=== PATIENT | female | born 1985 ===

== ENCOUNTER 2018-08-31 10:02 | Observation (INO) ==
[2018-08-31 11:11] LABS: Basophils % 0.4 %; Eosinophils # 0.2 K/mcL (0.0-0.6); Eosinophils % 1.8 %; Hematocrit 33.9 % (35.3-44.9); Immature Granulocytes % 0.8 % (0-4); Lymphocytes # 1.5 K/mcL (0.6-4.6); Mean Corpuscular HGB Conc 32.4 g/dL (31.6-35.5); Mean Corpuscular Hemoglobin 30.1 pg (28.0-33.3); Mean Corpuscular Volume 92.6 fL (83.0-100.0); Mean Platelet Volume 11.4 fL (9.4-12.4); Monocytes # 0.4 K/mcL (0.0-1.3); Monocytes % 4.9 %; Neutrophils # 6.7 K/mcL (1.6-8.9); Platelet Count 174 K/mcL (140-400); Red Blood Count 3.66 M/mcL (3.82-4.97); Red Cell Distribution Width 13.8 % (11.5-14.5); Segmented Neutrophils % 75.1 %; White Blood Count 8.9 K/mcL (4.3-11.1)
[2018-08-31 11:19] LABS: Amphetamine Screen,Urine Negative ng/mL (Cutoff=1000); Barbiturate Screen,Urine Negative ng/mL (Cutoff=200); Benzodiazepines Screen,Urine Negative ng/mL (Cutoff=200); Cannabinoid Screen,Urine Negative ng/mL (Cutoff = 50); Cocaine Screen,Urine Negative ng/mL (Cutoff= 300); Creatinine,Urine 111 mg/dL; Opiate Screen,Urine Negative ng/mL (Cutoff=300); Phencyclidine Screen,Urine Negative ng/mL (Cutoff=25); Protein/Creatinine Ratio,Urine 0.16 mg/mg (0.00-0.20)
[2018-08-31 11:31] LABS: Alanine Aminotransferase 11 Units/L (7-52); Aspartate Amino Transferase 14 Units/L (13-39); BUN/Creatinine Ratio 10 (6-26); Blood Urea Nitrogen 6 mg/dL (6-20); Lactate Dehydrogenase 117 Units/L (140-271); Uric Acid 5.2 mg/dL (2.3-7.6); eGFR For African Americans > 60 (> 60); eGFR For Non-African Americans > 60 (> 60)
--- NOTE | 2018-08-31 11:35 | OB/GYN Progress Note ---
Date of Encounter: 08/31/18 Time of Encounter: 11:32 - Assessment and Plan (1) 35 weeks gestation of Current Visit: Yes Status: Acute Reactive NST Labs normal Serial blood pressure normal Discharge home with PTL and Pre-E precautions Follow up in office as scheduled and PRN POC per consult with Dr León (2) NST (non-stress test) reactive Current Visit: Yes Status: Acute Subjective - Subjective Principal diagnosis: Pre-Eclampsia Rule Out Interval history: Ms Quintanilla presents to triage from the office for a Pre-Eclampsia evaluation. Her pressures were 150/100 x 2 and then 142/90's with repeat. She denies headaches, vision changes, epigastric pain, leaking of fluid, vaginal discharge, and contractions. She is seen by Dr León for her care. Antepartum ROS: movement normal, no loss of fluid, no vaginal bleeding, no contractions Objective - Vital Signs Vital Signs: Intake and Output 08/30/18 08/31/18 08/31/18 23:59 07:59 15:59 Other: Weight 83.4 kg Patient Weight 08/31/18 23:59 Weight 83.4 kg - Exam FHR: auscultation normal, category 1 FHR comments: Baseline 155 with moderate variability and 15 x 15 accels and no decels. No contractions per toco and patient report. Abdomen: Present: normal appearance, soft, gravid Uterus: Present: normal. Absent: firm, tenderness - Labs Labs: Abnormal lab results RBC 3.66 M/mcL (3.82-4.97) L 08/31/18 10:50 Hgb 11.0 g/dL (11.5-15.4) L 08/31/18 10:50 Hct 33.9 % (35.3-44.9) L 08/31/18 10:50 0.59 mg/dL (0.60-1.20) L 08/31/18 10:50 117 Units/L (140-271) L 08/31/18 10:50 18 mg/dL (1-14) H 08/31/18 10:50
== END 2018-08-31 12:20 | disposition home or self-care (01) ==
LOC: 1NENULAB
PROVIDERS: ADMIT Advanced Practice Midwife; ATTEND Advanced Practice Midwife

== ENCOUNTER 2018-09-26 08:09 | Inpatient (IN) ==
--- NOTE | 2018-09-26 09:03 | Anesthesia Evaluation PreOp ---
Date of Encounter: 09/26/18 Time of Encounter: 08:50 - Past History Planned Operation: Spinal for section Cardiac History: HTN (mild hypertension with ) Pulmonary History: Denies Any Significant HX SOLAR DESIGNER History: Denies Any Significant HX Other Medical History: GERD Anesthesia History: No Prior Anesthetic Complications, Past Anesthesia (previous csection) : Yes Alcohol Use: none Drug use: none Medications and Allergies Cetirizine HCl [Zyrtec] 1 tab PO DAILY 08/23/18 [History] Ferrous Sulfate [Iron] 1 tab PO BID 08/23/18 [History] Pnv95/Ferrous Fumarate/FA [ Vitamin Tablet] 1 tab PO DAILY 08/23/18 [History] raNITIdine HCl [Zantac] 1 tab PO DAILY 08/23/18 [History] Aspirin [Adult Aspirin] 81 mg PO 09/26/18 [History] Allergy/AdvReac Type Severity Reaction Status Date / Time No Known Allergies Allergy Verified 08/23/18 13:57 - Meds/Allergy Pre-op Review Medications Reviewed: Yes Allergies Reviewed: Yes Beta Blockers on Current Med List: No Anesthesia Results - Labs 09/26/18 09:28 Anesthesia Exam BP 136/90 P 82 R 16 T 98.1 Height: 5'0" Weight: 85.0kg NPO (# of Hours): 12 Pain Scale: 0 Pain Scale Used: Numeric (1 - 10) - HEENT Pupil (Motor): Pupils equal Mallampati: II Teeth: Normal Oral Opening: Greater than 3 - SOLAR DESIGNER LOC: Oriented SOLAR DESIGNER Motor: Normal RUE, Normal LUE, Normal RLE, Normal LLE, Normal Face SOLAR DESIGNER Sensory: Normal: RUE, LUE, RLE, LLE, Face - Cardiac Rhythm: Regular Murmur: None JVD: No Carotid Bruit: No - Pulmonary Breath Sounds: bilateral Clear Respiratory Effort: Symmetrical Anesthesia Assess/Plan ASA Score: 2 Level of consciousness: Cooperative, Oriented, Tranquil Anesthetic Plan: Spinal Autologous Blood: Yes Monitoring Plan: Standard Monitors Recovery Plan: PACU
--- NOTE | 2018-09-26 09:05 | OB/GYN History & Physical ---
Date of Encounter: 09/26/18 Time of Encounter: 09:03 Assessment and Plan (1) 39 weeks gestation of Current visit: Yes Status: Acute Admit to labor and delivery for scheduled repeat low transverse section, declined TOLAC. Continuous EFM and toco. (2) History of gestational hypertension Current visit: Yes Status: Acute Baby aspirin daily. Follow-up on preeclampsia labs ordered on admission. (3) History of section, low transverse Current visit: Yes Status: Acute Plan for repeat section today. Status post counseling, risks and benefits discussion, regarding trial of labor after section and patient declines TOLAC. (4) Sterilization Current visit: Yes Status: Acute Family planning status complete. Consent signed in clinic on 07/29/2018. History of Present Illness Chief complaint: Repeat low transverse section HPI: Ms. Quintanilla is a 33 year old female at 39.1 weeks gestational age by LMP. She presents to labor and delivery for planned repeat low transverse section with bilateral tubal ligation. She declined TOLAC. She is currently taking a baby aspirin aspirin daily for history of gestational hypertension in her previous . Her blood pressures have been controlled without medication this . She continues to verbalize her desire for tubal ligation as her family planning status is complete. On 08/30/2018 her FABIOLA was 24.61 and her most recent ultrasound from 09/23/2018 showed an FABIOLA of 17.5 in vertex position an anterior placenta. +FM. Denies VB, LOF, abnml vag discharge, ctxs/cramping, headache, vision changes, right upper quadrant/epigastric pain, new onset chest pain or shortness of breath, dysuria or other complaints. Past Med Surg Social Fam HX - Past Medical History Source: patient Medical history: other (Inguinal hernia repairs) Additional medical history: murmur Psychiatric history: no psych history - Past Surgical History Surgical History: orthopedic, other Additional surgical history: knee surgery, hernia repair surgery x2 - Social History Smoking Status: Never smoker Smokeless Tobacco Status: No Alcohol use: none Drug use: none Occupational status: employed Current living situation: Home - Independent Recent Out of Country Travel Within the Last 8 Weeks: No Exposure or Possible Exposure to Illness During Travel: No - Family History Mother Living Status: Still Living Hx Family Autoimmune Disorders: Yes (lupus) Obstetrical History - Pregnancies : 2 Para: 1 Term: 1 : 0 Ab's: 0 Livin - History/Complications History/Complications: She was a late transfer of care at 16 weeks and 4 days secondary to moving from [place]. Her previous was, complicated by gestational hypertension so a baby aspirin was started daily. No other complications during this . Medications and Allergies Cetirizine HCl [Zyrtec] 1 tab PO DAILY 08/23/18 [History] Ferrous Sulfate [Iron] 1 tab PO BID 08/23/18 [History] Pnv95/Ferrous Fumarate/FA [ Vitamin Tablet] 1 tab PO DAILY 08/23/18 [History] raNITIdine HCl [Zantac] 1 tab PO DAILY 08/23/18 [History] Aspirin [Adult Aspirin] 81 mg PO 09/26/18 [History] Allergy/AdvReac Type Severity Reaction Status Date / Time No Known Allergies Allergy Verified 08/23/18 13:57 Review of System OB All systems PM: reviewed and no additional remarkable complaints except as stated (All other systems are negative outside of the history of present illness.) Exam - Vital Signs Vital signs: Initial Vital Signs Temp Pulse Resp BP 98.1 F 82 16 136/90 09/26/18 08:42 09/26/18 08:42 09/26/18 08:42 09/26/18 08:42 - Constitutional Constitutional: well developed, well nourished, no acute distress, average body habitus - HEENT HEENT: Normocephaly, Mucus Membranes Moist - Neck Neck exam: supple - Abdomen Abdomen: Present: bowel sounds normal, gravid, non tender - Extremities Extremities exam: pedal edema Results All other labs normal.
[2018-09-26] MEDS ORDERED: Dexamethasone 4 MG/ML VIAL ONE (09:11)
[2018-09-26] MEDS ORDERED: Ondansetron 4 MG/2 ML VIAL ONE (09:11)
[2018-09-26] MEDS ORDERED: *HR* Oxytocin 10 UNIT/ML VIAL IM ONE ×2 (09:11→11:42)
[2018-09-26] MEDS ORDERED: *HR* Morphine Sulfate/PF 10 MG/10 ML AMPUL ONE (09:11)
[2018-09-26] MEDS ORDERED: *HR* Phenylephrine 10 MG/ML VIAL ONE (09:12)
[2018-09-26] MEDS ORDERED: Ringers Solution, Lactated 1,000 ML ONE ×3 (09:18→11:36)
[2018-09-26] MEDS ORDERED: CeFAZolin Premix DUPLEX 2,000 MG/50 ML BAG IVPB ONE (09:34)
[2018-09-26] MEDS ORDERED: Oxytocin 20 units/ LR 1000 mL 20 UNIT/1,000 ML BAG IVC ONE (09:34)
[2018-09-26] MEDS ORDERED: Ringers Solution, Lactated 1,000 ML IVC ONE (09:34)
[2018-09-26] MEDS ORDERED: Metoclopramide 10 MG/2 ML VIAL IVP ONE (09:34)
[2018-09-26] MEDS ORDERED: Famotidine 20 MG/2 ML VIAL IVP ONE (09:34)
[2018-09-26] MEDS ORDERED: Ringers Solution, Lactated 1,000 ML IVC SCH (09:45)
--- NOTE | 2018-09-26 09:46 | OB/GYN Procedure Note ---
Section - Date of procedure: 09/26/18 Preop diagnosis: desires repeat (Declined TOLAC), desires sterilization Post-op diagnosis: same Procedure: section, repeat low transverse, bilateral tubal ligation Surgeon: Chelsea Martell Quantitated Blood Loss: 500 Was there an legal administrative assistant present: Yes Steam Cleaning Machine Operator: Nirali Lake Anesthesia Type: Spinal section complications: none Disposition: L&D Recovery Room Specimens: Placenta - (s) A Infant Delivery Date: 09/26/18 Delivery Time: 10:49 Presentation: vertex Position: OP Gender: Male Viability: Viable Pounds: 8 Ounces: 4 Gram Weight: 3755 kg at 1 minute: 7 at 5 minutes: 8 Shoulder Dystocia: not encountered Placenta: spontaneous Cord: nuchal cord (reduced at hysterotomy), nuchal reduced - Narrative Narrative: Operation Performed Repeat Low Transverse Section with bilateral tubal ligation Indication for Surgery 33yo at 39.1 wga who presented to labor and delivery for scheduled repeat low transverse section. She declined a trial of labor after section. Her family planning status is complete and she verbalized her desire for a bilateral tubal ligation. Consents were signed on 07/29/2018. The patient was informed of the risks and benefits of a section with bilateral tubal ligation. Risks included but were not limited to bleeding, infection, injury to the presenting part of the fetus, injury to the bladder, bowel, ureters and the surrounding neurovasular bundles. The patient expressed understanding of the risks involved. All questions were answered and the patient consented to the procedure. Preoperative Diagnosis 1. Previous section x1, declined TOLAC 2. IUP @ 39.1wga Postoperative Diagnosis Same Surgeon Chelsea Martell D.O. Steam Cleaning Machine Operator(s) Nirali Lake M.D. Anesthesia Spinal with Duramorph Estimated Blood Loss 500 mL Urine Output 600 mL of clear yellow urine IV Fluids 1300mL crystalloid Specimen(s) Placenta, Cord segment, portions of bilateral fallopian tubes Findings Live male , weighing 8 pounds and 4 ounces, with APGARS of 7/8. Grossly normal appearing uterus, tubes and ovaries bilaterally. Thin lower uterine segment noted. Moderate amount of adhesions present over bilateral adnexa. Complications None Technique The patient was taken to the operating room where a timeout was performed to confirm correct patient and correct procedure. Preoperative antibiotics were administered and spinal anesthesia was found to be adequate. The patient was prepped and draped in the usual sterile fashion for a section, in supine position with a leftward tilt of the hips. A Pfannenstiel skin incision was made with a scalpel. Dissection to the fascia was carried out using blunt and sharp dissection, followed by the Bovie electrocautery for hemostasis. The fascia was incised with a scalpel and the incision was extended laterally using curved Bello scissors. Katie clamps were used to tent up the superior edge of the fascia and the underlying rectus muscles were dissected off using blunt and sharp dissection. Attention was then turned to the inferior fascial edge and dissection carried out in a similar manner. The rectus muscles were then in the midline and the peritoneum was entered using blunt and sharp dissection. The peritoneum was grasped with hemostats at the superior aspect, care was taken to avoid the bladder, and entered bluntly. The peritoneal opening was extended using light traction. A bladder blade was inserted, the vesicoperitoneal reflection was identified, and a bladder flap was created using Metzenbaum scissors and blunt dissection. The bladder blade was then replaced to protect the bladder. The lower uterine segment was incised with a scalpel in transverse fashion. The hysterotomy was extended laterally with blunt traction in cephalad and caudad directions. The fetus was in vertex presentation, OP position. The surgeon's hand was placed under the infant's head and the delivered through the hysterotomy with the assistance of fundal pressure. A single nuchal cord was noted & reduced at the hysterotomy. The mouth and nose were bulb suctioned and the cord was clamped 2 and cut. The was safely transferred to the [facility] for further care by the stone dresser. A segment of cord was collected for possible testing. The placenta, with three-vessel cord, was expressed intact. The uterus was exteriorized and wiped clean of clots and debris before closing the hysterotomy with a running locked 0 Vicryl suture. Non-hemostatic areas were cauterized with the Bovie electrocautery. Attention was then turned to the right fallopian tube. This was grasped with a Tyrone, after following the fimbriated end to a clear window. 0 Plain gut suture was used to doubly suture ligate the fallopian tube proximal & distal to the [place] clamp. The portion of right fallopian tube was cut with Metzenbaum scissors. Hemostasis was noted over the incised portions of the right tube. The left fallopian tube was ligated with 0 Plain gut suture in a modified [place] fashion. Hemostasis was noted over the incised portions of the left tube. The ligated portions of the bilateral fallopian tubes were sent to Pathology for routine evaluation. The uterus was replaced into the abdomen and another survey was performed. An area over the bladder and an area on the peritoneal edge, near the enlarged right uterine vasculature, continue to use. 5 mg of Pramod was applied and excellent hemostasis noted. The fascia was closed using Stratafix suture in a running nonlocked fashion. The skin was closed with a subcuticular stitch of 4-0 Vicryl. 10 mL of 2% lidocaine with epinephrine was injected along the Pfannenstiel incision prior to closure. The patient tolerated the procedure well. At the end of the procedure, all needle sponge and instrument counts were noted to be correct 2. The patient tolerated the procedure well and was transferred to the recovery room in stable condition. Dr. Lake assisted in retracting tissue to aid in visualization, cut suture, provide fundal pressure and maintain visualization within the operative field by evacuating blood and debris when needed.
[2018-09-26 09:54] LABS: Basophils # 0.1 K/mcL (0.0-0.2); Basophils % 0.5 %; Bilirubin,Urine Negative (Negative); Blood,Urine Negative (Negative); Clarity,Urine Clear (Clear); Color,Urine Yellow (Yellow); Eosinophils # 0.2 K/mcL (0.0-0.6); Eosinophils % 2.3 %; Glucose,Urine (UA) Normal (Normal); Hematocrit 34.9 % (35.3-44.9); Hemoglobin 11.4 g/dL (11.5-15.4); Immature Granulocytes % 0.6 % (0-4); Ketones,Urine Negative (Negative); Leukocyte Esterase,Urine Negative (Negative); Lymphocytes # 1.8 K/mcL (0.6-4.6); Lymphocytes % 18.7 %; Mean Corpuscular HGB Conc 32.7 g/dL (31.6-35.5); Mean Corpuscular Hemoglobin 30.1 pg (28.0-33.3); Mean Corpuscular Volume 92.1 fL (83.0-100.0); Mean Platelet Volume 12.2 fL (9.4-12.4); Monocytes # 0.6 K/mcL (0.0-1.3); Monocytes % 6.2 %; Neutrophils # 6.9 K/mcL (1.6-8.9); Nitrite,Urine Negative (Negative); Platelet Count 155 K/mcL (140-400); Protein,Urine Negative (Neg-Trace); Red Blood Count 3.79 M/mcL (3.82-4.97); Red Cell Distribution Width 13.9 % (11.5-14.5); Segmented Neutrophils % 71.7 %; Specific Gravity,Urine 1.016 (1.010-1.025); Urobilinogen,Urine Normal (Normal); White Blood Count 9.6 K/mcL (4.3-11.1)
[2018-09-26 10:03] LABS: Protein/Creatinine Ratio,Urine 0.2 mg/mg (0.00-0.20)
[2018-09-26 10:13] LABS: Alanine Aminotransferase 12 Units/L (7-52); Aspartate Amino Transferase 16 Units/L (13-39); BUN/Creatinine Ratio 12 (6-26); Blood Urea Nitrogen 9 mg/dL (6-20); Lactate Dehydrogenase 131 Units/L (140-271); Uric Acid 5.5 mg/dL (2.3-7.6); eGFR For African Americans > 60 (> 60); eGFR For Non-African Americans > 60 (> 60)
[2018-09-26 10:29] LABS: Amphetamine Screen,Urine Negative ng/mL (Cutoff=1000); Barbiturate Screen,Urine Negative ng/mL (Cutoff=200); Benzodiazepines Screen,Urine Negative ng/mL (Cutoff=200); Cannabinoid Screen,Urine Negative ng/mL (Cutoff = 50); Cocaine Screen,Urine Negative ng/mL (Cutoff= 300); Opiate Screen,Urine Negative ng/mL (Cutoff=300); Phencyclidine Screen,Urine Negative ng/mL (Cutoff=25)
--- NOTE | 2018-09-26 10:43 | Anesthesia Procedures ---
Date of Encounter: 09/26/18 Time of Encounter: 10:15 Procedures: Anesthesia - Epidural/Spinal Patient ID/Chart reviewed: Yes Patient examined: Yes OB Eval: Gestational age: 39 OB Eval: : 2 OB Eval: Hx Para: 1 OB Eval: Contractions: Non-stressed pattern Consent Obtained: Yes Supplemental Oxygen: None/Room Air Site Prep: Aseptic Technique, Sterile prep and drape, Povidone-Iodine 1% Patient position: upright Local Anesthetic: Lidocaine 1% Amount of Local Anesthetic used: 3 Interspace Used: L3-L4 Blood: No CSF: Yes Paresthesia: No Spinal Needle Gauge: 25 (Pencan) Spinal Dose: Bupivicaine 0.75% 1.4ml, Duramorph 300mcg Procedure: Intrathecal dose administered 1st pass in upright position. CSF aspiration with ease prior to medication administration. VSS throughout. Vitals + FHT's: See anesthesia record
[2018-09-26] MEDS ORDERED: *HR* Promethazine 25 MG/ML VIAL IVP PRN (11:05)
[2018-09-26] MEDS ORDERED: *HR* Meperidine 25 MG/ML SYRINGE IVP PRN (11:05)
[2018-09-26] MEDS ORDERED: traMADol 50 MG TABLET PO PRN (11:05)
[2018-09-26] MEDS ORDERED: Acetaminophen IV 1,000 MG/100 ML INFUS..BTL IVPB ONE (11:05)
[2018-09-26] MEDS ORDERED: Ketorolac 30 MG/ML VIAL IVP ONE (11:05)
[2018-09-26] MEDS ORDERED: *HR* HYDROmorphone (PF) 1 MG/ML SYRINGE IVP PRN (11:05)
[2018-09-26] MEDS ORDERED: Ondansetron 4 MG/2 ML VIAL IVP ONE (11:05)
[2018-09-26] MEDS ORDERED: *HR* Nalbuphine 10 MG/ML AMPUL IV PRN (11:05)
[2018-09-26] MEDS ORDERED: Ketorolac 30 MG/ML VIAL ONE (12:00)
[2018-09-26] MEDS ORDERED: Ketorolac 30 MG/ML VIAL IVP SCH (14:49)
[2018-09-26] MEDS ORDERED: Ondansetron 4 MG/2 ML VIAL IVP PRN (14:49)
[2018-09-26] MEDS ORDERED: Metoclopramide 10 MG/2 ML VIAL IVP PRN (14:49)
[2018-09-26] MEDS ORDERED: Oxytocin 20 units/ LR 1000 mL 20 UNIT/1,000 ML BAG IVC SCH (14:49)
[2018-09-26] MEDS: Ibuprofen 600 MG TABLET PO SCH ×2 (16:27→19:21)
[2018-09-26] MEDS: Acetaminophen 325 MG TABLET PO SCH (16:28)
[2018-09-26] MEDS: Ketorolac 30 MG/ML VIAL IVP SCH (19:19)
[2018-09-26] MEDS: Simethicone 80 MG TAB.CHEW PO PRN (20:05)
--- NOTE | 2018-09-26 22:25 | Anesthesia Evaluation Post Op ---
Date of Encounter: 09/26/18 Time of Encounter: 13:00 - Vital Signs Vital Signs: Vital Signs Temperature 98.1 F 09/26/18 08:42 Pulse Rate 82 09/26/18 08:42 Respiratory Rate 16 09/26/18 08:42 Blood Pressure 136/90 09/26/18 08:42 Temperature 98.9 F 09/26/18 20:05 Pulse Rate 84 09/26/18 20:05 Respiratory Rate 18 09/26/18 20:05 Blood Pressure 146/84 09/26/18 20:05 O2 Sat by Pulse Oximetry 97 09/26/18 20:05 - Lungs Lungs: Clear Ascult./Percussion - Airway Airway: Non-obstructed - Cardiovascular Regular Rate - Mental Status Mental Status: Alert & Oriented, Answers Appropriately - Pain Pain Scale: 3 Pain Scale used: Numeric (1 - 10) - Nausea Vomiting Nausea Vomiting: Not Present - Hydration Hydration: NPO, Wang catheter - Discharge PostOp Status: Transfer Patient to floor
[2018-09-27] MEDS: Acetaminophen 325 MG TABLET PO SCH ×6 (00:08→22:15)
[2018-09-27] MEDS: Ketorolac 30 MG/ML VIAL IVP SCH ×2 (00:09→05:57)
[2018-09-27] MEDS: *HR* OxyCODONE Immed Rel 5 MG TABLET PO PRN ×4 (02:40→18:13)
[2018-09-27] MEDS: Simethicone 80 MG TAB.CHEW PO PRN ×2 (05:58→12:19)
[2018-09-27] MEDS: Ibuprofen 600 MG TABLET PO SCH ×4 (07:27→18:12)
[2018-09-27 07:29] LABS: Basophils # 0.1 K/mcL (0.0-0.2); Basophils % 0.4 %; Eosinophils # 0.1 K/mcL (0.0-0.6); Hematocrit 30.6 % (35.3-44.9); Immature Granulocytes % 0.4 % (0-4); Lymphocytes # 1.9 K/mcL (0.6-4.6); Mean Corpuscular HGB Conc 31.7 g/dL (31.6-35.5); Mean Corpuscular Hemoglobin 29.8 pg (28.0-33.3); Mean Corpuscular Volume 93.9 fL (83.0-100.0); Mean Platelet Volume 11.9 fL (9.4-12.4); Monocytes # 0.8 K/mcL (0.0-1.3); Monocytes % 7.4 %; Neutrophils # 8.3 K/mcL (1.6-8.9); Platelet Count 132 K/mcL (140-400); Red Blood Count 3.26 M/mcL (3.82-4.97); Red Cell Distribution Width 13.9 % (11.5-14.5); Segmented Neutrophils % 73.8 %; White Blood Count 11.3 K/mcL (4.3-11.1)
[2018-09-27 07:31] LABS: Hemoglobin 9.7 g/dL (11.5-15.4)
[2018-09-27] MEDS: Prenatal Vit/FA 1 EACH TABLET PO SCH (09:22)
[2018-09-27] MEDS ORDERED: *HR* OxyCODONE Immed Rel 5 MG TABLET PO PRN (11:40)
--- NOTE | 2018-09-27 12:13 | OB/GYN Progress Note ---
Date of Encounter: 09/27/18 Time of Encounter: 12:10 - Assessment and Plan (1) Status post repeat low transverse section Current Visit: Yes Status: Acute Continue routine post-op/ care Patient meeting day one milestones. Pain well-controlled with prescribed medications. Voiding without difficulty, tolerating regular diet, bleeding light. No bowel movement yet. Anticipate discharge tomorrow or Thursday (2) Tubal ligation status Current Visit: Yes Status: Acute Tubal ligation completed at time of (3) Breast feeding status of mother Current Visit: Yes Status: Acute support as needed. Patient has a breast pump Subjective - Subjective Principal diagnosis: Status post section Interval history: Date of procedure: 09/26/18 Preop diagnosis: desires repeat (Declined TOLAC), desires sterilization Post-op diagnosis: same Procedure: section, repeat low transverse, bilateral tubal ligation Surgeon: Chelsea Cabrera Blood Loss: 500 Was there an assistant professor of physics present: Yes Social And Political Studies Professor: Nirali Lake Anesthesia Type: Spinal section complications: none Disposition: L&D Recovery Room Specimens: Placenta - Infant (s) Infant A Delivery Date: 09/26/18 Infant Delivery Time: 10:49 Presentation: vertex Position: OP Gender: Male Viability: Viable Pounds: 8 Ounces: 4 Gram Weight: 3755 kg at 1 minute: 7 at 5 minutes: 8 Shoulder Dystocia: not encountered Placenta: spontaneous Cord: nuchal cord (reduced at hysterotomy), nuchal reduced - Narrative Narrative: Operation Performed Repeat Low Transverse Section with bilateral tubal ligation Indication for Surgery 33yo at 39.1 wga who presented to labor and delivery for scheduled repeat low transverse section. She declined a trial of labor after section. Her family planning status is complete and she verbalized her desire for a bilateral tubal ligation. Consents were signed on 07/29/2018. The patient was informed of the risks and benefits of a section with bilateral tubal ligation. Risks included but were not limited to bleeding, infection, injury to the presenting part of the fetus, injury to the bladder, bowel, ureters and the surrounding neurovasular bundles. The patient expressed understanding of the risks involved. All questions were answered and the patient consented to the procedure. Preoperative Diagnosis 1. Previous section x1, declined TOLAC 2. IUP @ 39.1wga Postoperative Diagnosis Same Surgeon Chelsea Martell D.O. Social And Political Studies Professor(s) Nirali Lake M.D. Anesthesia Spinal with Duramorph Estimated Blood Loss 500 mL Urine Output 600 mL of clear yellow urine IV Fluids 1300mL crystalloid Specimen(s) Placenta, Cord segment, portions of bilateral fallopian tubes Findings Live male , weighing 8 pounds and 4 ounces, with APGARS of 7/8. Grossly normal appearing uterus, tubes and ovaries bilaterally. Thin lower uterine segment noted. Moderate amount of adhesions present over bilateral adnexa. Complications None Technique The patient was taken to the operating room where a timeout was performed to confirm correct patient and correct procedure. Preoperative antibiotics were administered and spinal anesthesia was found to be adequate. The patient was prepped and draped in the usual sterile fashion for a section, in supine position with a leftward tilt of the hips. A Pfannenstiel skin incision was made with a scalpel. Dissection to the fascia was carried out using blunt and sharp dissection, followed by the Bovie electrocautery for hemostasis. The fascia was incised with a scalpel and the incision was extended laterally using curved Bello scissors. Katie clamps were used to tent up the superior edge of the fascia and the underlying rectus muscles were dissected off using blunt and sharp dissection. Attention was then turned to the inferior fascial edge and dissection carried out in a similar manner. The rectus muscles were then in the midline and the peritoneum was entered using blunt and sharp dissection. The peritoneum was grasped with hemostats at the superior aspect, care was taken to avoid the bladder, and entered bluntly. The peritoneal opening was extended using light traction. A bladder blade was inserted, the vesicoperitoneal reflection was identified, and a bladder flap was created using Metzenbaum scissors and blunt dissection. The bladder blade was then replaced to protect the bladder. The lower uterine segment was incised with a scalpel in transverse fashion. The hysterotomy was extended laterally with blunt traction in cephalad and caudad directions. The fetus was in vertex presentation, OP position. The surgeon's hand was placed under the infant's head and the delivered through the hysterotomy with the assistance of fundal pressure. A single nuchal cord was noted & reduced at the hysterotomy. The mouth and nose were bulb suctioned and the cord was clamped 2 and cut. The infant was safely transferred to the [facility] [place] for further care by the bioinformatics technician. A segment of cord was collected for possible testing. The placenta, with three-vessel cord, was expressed intact. The uterus was exteriorized and wiped clean of clots and debris before closing the hysterotomy with a running locked 0 Vicryl suture. Non-hemostatic areas were cauterized with the Bovie electrocautery. Attention was then turned to the right fallopian tube. This was grasped with a [place], after following the fimbriated end to a clear window. 0 Plain gut suture was used to doubly suture ligate the fallopian tube proximal & distal to the [place] clamp. The portion of right fallopian tube was cut with Metzenbaum scissors. Hemostasis was noted over the incised portions of the right tube. The left fallopian tube was ligated with 0 Plain gut suture in a modified [place] fashion. Hemostasis was noted over the incised portions of the left tube. The ligated portions of the bilateral fallopian tubes were sent to Pathology for routine evaluation. The uterus was replaced into the abdomen and another survey was performed. An area over the bladder and an area on the peritoneal edge, near the enlarged right uterine vasculature, continue to use. 5 mg of Pramod was applied and excellent hemostasis noted. The fascia was closed using Stratafix suture in a running nonlocked fashion. The skin was closed with a subcuticular stitch of 4-0 Vicryl. 10 mL of 2% lidocaine with epinephrine was injected along the Pfannenstiel incision prior to closure. The patient tolerated the procedure well. At the end of the procedure, all needle sponge and instrument counts were noted to be correct 2. The patient tolerated the procedure well and was transferred to the recovery room in stable condition. Dr. Lake assisted in retracting tissue to aid in visualization, cut suture, provide fundal pressure and maintain visualization within the operative field by evacuating blood and debris when needed. Patient reports: appetite normal, voiding normally, pain well controlled, ambulating normally : doing well, nursing well Objective - Vital Signs Latest vital signs: Vital Signs Temp Pulse Resp BP Pulse Ox 09/27/18 08:12 98.2 F 82 16 120/77 09/27/18 06:00 98.6 F 81 18 130/81 97 09/27/18 00:10 99.2 F 76 18 149/85 97 09/26/18 20:05 98.9 F 84 18 146/84 97 09/26/18 17:30 98.4 F 81 16 143/88 98 09/26/18 16:30 98.1 F 86 16 137/83 96 09/26/18 15:30 98.1 F 78 16 145/85 97 09/26/18 15:00 98.2 F 96 16 153/96 97 09/26/18 14:30 99.2 F 82 16 138/85 97 Intake and Output 09/26/18 09/27/18 09/27/18 23:59 07:59 15:59 Intake Total 200 / 200 600 / 1140 540 / 1140 Output Total 1250 / 1250 1150 / 1600 450 / 1600 Balance -1050 / -1050 -550 / -460 90 / -460 Intake: Oral 200 / 200 600 / 1140 540 / 1140 Output: Urine 1150 / 1600 450 / 1600 Catheter 1250 / 1250 Other: Meal Breakfast Percent of Meal Consumed 90% - Exam Lungs: bilateral: normal Chest: Normal S1, Normal S2 Extremities: Present: normal Abdomen: Present: normal appearance, soft. Absent: distention, tenderness Incision: Present: dry, dressed Uterus: Present: normal, firm Fundal Height: 0 (@u) - Labs Labs: Laboratory Results - last 24 hr 09/27/18 06:59 WBC 11.3 H RBC 3.26 L Hgb 9.7 L D Hct 30.6 L MCV 93.9 MCH 29.8 MCHC 31.7 RDW 13.9 Plt Count 132 L MPV 11.9 Immature Gran % 0.4 Seg Neutrophils % 73.8 Lymphocytes % 17.0 Monocytes % 7.4 Eosinophils % 1.0 Basophils % 0.4 Neutrophils # 8.3 Lymphocytes # 1.9 Monocytes # 0.8 Eosinophils # 0.1 Basophils # 0.1
[2018-09-28] MEDS: Ibuprofen 600 MG TABLET PO SCH ×2 (00:18→09:16)
[2018-09-28] MEDS: Simethicone 80 MG TAB.CHEW PO PRN ×2 (03:07→09:16)
[2018-09-28] MEDS: *HR* OxyCODONE Immed Rel 5 MG TABLET PO PRN (03:07)
[2018-09-28 07:54] VITALS: BP 129/86
[2018-09-28] MEDS: Acetaminophen 325 MG TABLET PO SCH (09:17)
[2018-09-28] MEDS: Prenatal Vit/FA 1 EACH TABLET PO SCH (09:17)
--- NOTE | 2018-09-28 10:09 | Discharge Summary ---
Date of Encounter: 09/28/18 Time of Encounter: 10:06 - Discharge Diagnosis (1) Breast feeding status of mother Priority: Secondary Status: Acute (2) Status post repeat low transverse section Priority: Primary Status: Acute Comments: Stable, meeting all PP milestones, pain well managed, tolerates po diet, breast feeding, desires discharge (3) Tubal ligation status Priority: Secondary Status: Acute - Discharge Medications Prescriptions: New Docusate [Colace] 100 mg PO BID #30 capsule Ferrous Sulfate 325 mg PO DAILY #30 tablet Simethicone [Gas-X] 80 mg PO TID PRN tab.chew PRN Reason: Dyspepsia Ibuprofen [Motrin] 600 mg PO Q6HR #60 tablet OxyCODONE/APAP 5/325 [Percocet 5/325 MG] 1 each PO Q6HR PRN 5 Days #20 tablet PRN Reason: Pain Acetaminophen [Tylenol] 325 mg PO Q6HR tablet Continued raNITIdine HCl [Zantac] 1 tab PO DAILY Pnv95/Ferrous Fumarate/FA [ Vitamin Tablet] 1 tab PO DAILY Cetirizine HCl [Zyrtec] 1 tab PO DAILY Discontinued Aspirin [Adult Aspirin] 81 mg PO No Action Ferrous Sulfate [Iron] 1 tab PO BID Home Medications: Cetirizine HCl [Zyrtec] 1 tab PO DAILY 08/23/18 [History] Ferrous Sulfate [Iron] 1 tab PO BID 08/23/18 [History] Pnv95/Ferrous Fumarate/FA [ Vitamin Tablet] 1 tab PO DAILY 08/23/18 [History] raNITIdine HCl [Zantac] 1 tab PO DAILY 08/23/18 [History] Acetaminophen [Tylenol] 325 mg PO Q6HR tablet 09/28/18 [Rx] Docusate [Colace] 100 mg PO BID #30 capsule 09/28/18 [Rx] Ferrous Sulfate 325 mg PO DAILY #30 tablet 09/28/18 [Rx] Ibuprofen [Motrin] 600 mg PO Q6HR #60 tablet 09/28/18 [Rx] OxyCODONE/APAP 5/325 [Percocet 5/325 MG] 1 each PO Q6HR PRN 5 Days #20 tablet 09/28/18 [Rx] Simethicone [Gas-X] 80 mg PO TID PRN tab.chew 09/28/18 [Rx] Allergies/Adverse Reactions: Allergy/AdvReac Type Severity Reaction Status Date / Time No Known Allergies Allergy Verified 08/23/18 13:57 Data Procedures and tests throughout hospitalization: Laboratory Tests 09/26/18 09/26/18 09/26/18 09:28 09:28 09:28 WBC 9.6 RBC 3.79 L Hgb 11.4 L Hct 34.9 L MCV 92.1 MCH 30.1 MCHC 32.7 RDW 13.9 Plt Count 155 MPV 12.2 Immature Gran % 0.6 Seg Neutrophils % 71.7 Lymphocytes % 18.7 Monocytes % 6.2 Eosinophils % 2.3 Basophils % 0.5 Neutrophils # 6.9 Lymphocytes # 1.8 Monocytes # 0.6 Eosinophils # 0.2 Basophils # 0.1 BUN Creatinine Est GFR ( Amer) Est GFR (Non-Af Amer) BUN/Creatinine Ratio Uric Acid AST ALT Lactate Dehydrogenase Urine Color Urine Clarity Urine pH Ur Specific [place] Urine Protein Urine Glucose (UA) Urine Ketones Urine Blood Urine Nitrite Urine Bilirubin Urine Urobilinogen Ur Leukocyte Esterase Ur Culture Indicated? Urine Creatinine 71 Protein/Creatinin Ratio 0.20 Urine Total Protein 14 Urine Opiates Screen Negative Ur Buprenorphine Scrn Negative Ur Barbiturates Screen Negative Ur Phencyclidine Scrn Negative Ur Amphetamines Screen Negative U Benzodiazepines Scrn Negative Urine Cocaine Screen Negative U Marijuana (THC) Screen Negative Ur Drug Screen Interp See Below 09/26/18 09/26/18 09/27/18 09:28 09:28 06:59 WBC 11.3 H RBC 3.26 L Hgb 9.7 L D Hct 30.6 L MCV 93.9 MCH 29.8 MCHC 31.7 RDW 13.9 Plt Count 132 L MPV 11.9 Immature Gran % 0.4 Seg Neutrophils % 73.8 Lymphocytes % 17.0 Monocytes % 7.4 Eosinophils % 1.0 Basophils % 0.4 Neutrophils # 8.3 Lymphocytes # 1.9 Monocytes # 0.8 Eosinophils # 0.1 Basophils # 0.1 BUN 9 Creatinine 0.75 Est GFR ( Amer) > 60 Est GFR (Non-Af Amer) > 60 BUN/Creatinine Ratio 12 Uric Acid 5.5 AST 16 ALT 12 Lactate Dehydrogenase 131 L Urine Color Yellow Urine Clarity Clear Urine pH 7.0 Ur Specific [place] 1.016 Urine Protein Negative Urine Glucose (UA) Normal Urine Ketones Negative Urine Blood Negative Urine Nitrite Negative Urine Bilirubin Negative Urine Urobilinogen Normal Ur Leukocyte Esterase Negative Ur Culture Indicated? NO Urine Creatinine Protein/Creatinin Ratio Urine Total Protein Urine Opiates Screen Ur Buprenorphine Scrn Ur Barbiturates Screen Ur Phencyclidine Scrn Ur Amphetamines Screen U Benzodiazepines Scrn Urine Cocaine Screen U Marijuana (THC) Screen Ur Drug Screen Interp Date of admission: 09/26/18 08:09 Primary care physician: PCP NONE Discharging clinician: Silvana Wallace Anticipated date of discharge: 09/28/18 - Patient Status Disposition: Home, Self-Care Condition: Good Functional capacity at discharge: independent ambulation Overall status at discharge: patient is progressing back to baseline - Discharge Instructions Follow Up With: Chelsea Martell [Partnered Physician] - NONE,PCP [Primary Care Provider] - - Diet and Activity Activity: resume usual activities as tolerated Diet: regular diet Hospital Course Reason for admission: section Delivery: section Episiotomy: none Laceration: none Other procedures: tubal ligation complications: none Discharge diagnosis: IUP at term delivered baby: male Hospital course: Section - Date of procedure: 09/26/18 Preop diagnosis: desires repeat (Declined TOLAC), desires sterilization Post-op diagnosis: same Procedure: section, repeat low transverse, bilateral tubal ligation Surgeon: Chelsea Martell Quantitated Blood Loss: 500 Was there an assistant tennis coach present: Yes Pig Machine Operator: [place] Anesthesia Type: Spinal section complications: none Disposition: L&D Recovery Room Specimens: Placenta - Infant (s) Infant A Delivery Date: 09/26/18 Infant Delivery Time: 10:49 Presentation: vertex Position: OP Gender: Male Viability: Viable Pounds: 8 Ounces: 4 Gram Weight: 3755 kg at 1 minute: 7 at 5 minutes: 8 Shoulder Dystocia: not encountered Placenta: spontaneous Cord: nuchal cord (reduced at hysterotomy), nuchal reduced Stable in PP and appropriate for discharge OARRS reviewed Time Attestation: Total time spent providing and/or coordinating discharge services: Exam - Constitutional Vitals: Temp Pulse Resp BP Pulse Ox 98.0 F 77 14 129/86 97 09/28/18 07:54 09/28/18 07:54 09/28/18 07:54 09/28/18 07:54 09/28/18 07:54 General appearance IM: A&O X 3 - Respiratory Respiratory exam: Present: CTAB - Cardiovascular Cardiovascular exam IM: Present: RRR - GI/Abdominal GI/Abdominal exam IM: normal bowel sounds, soft Incision: intact - Uterine Tone: Firm Uterus Position: At Umbilicus - Extremities Exam Extremities exam IM: Present: normal capillary refill, normal inspection, pedal edema - Neurological Exam Neurological exam: normal gait, oriented X3 - Psychiatric Additional comments: reports good mood
== END 2018-09-28 13:25 | disposition home or self-care (01) | DRG 785 ==
LOC: 1NENULAB 08:09 → 1NENUOBS 15:18
PROVIDERS: ADMIT Obstetrics & Gynecology; ATTEND Obstetrics & Gynecology